=== PATIENT | male | born 1970 ===

== ENCOUNTER 2016-11-27 22:53 | Emergency (ER) | payer OTHER ==
[2016-11-28] MEDS ORDERED: PREDNISONE 20 MG TABLET ONE ×2 (01:27→01:30)
[2016-11-28] MEDS ORDERED: IBUPROFEN 800 MG TABLET ONE (01:27)
[2016-11-28 01:28] LABS: ABSOLUTE NEUTROPHIL COUNT 3.6 K/mm3 (1.8-7.7); BASO % 0.4 % (0.2-1.0); EOS # 0.3 (0.0-0.5); EOS % 3.5 % (0.9-2.9); HEMOGLOBIN 15.5 gm/l (14.0-18.0); IMM NEUT% 0.3 % (0-1); LYMPH # 2.7 (1.0-4.8); LYMPH % 37.7 % (15-45); MEAN CELL VOLUME 87.5 fl (80.0-94.0); MEAN CORPUSCULAR HEMOGLOBIN 29.5 pg (27.0-31.0); MEAN CORPUSCULAR HGB CONC 33.7 g/dl (33.0-37.0); MEAN PLATELET VOLUME 10.3 fl (7.4-10.4); MONO # 0.5 (0.0-0.8); MONO % 7.6 % (4-12); NEUT % 50.5 % (43-75); PLATELET COUNT 193 K/mm3 (130-400); RED CELL DISTRIBUTION WIDTH 12.4 % (11.5-14.5)
[2016-11-28 01:49] LABS: ALB/GLOB RATIO 1.5 (>1.0); ALBUMIN 4.4 gm/dL (3.5-5.7); CALCIUM 9.5 mg/dL (8.6-10.3)
[2016-11-28] MEDS ORDERED: HYDROCODONE/ACETAMINOPHEN 5/325MG TABLET ONE (03:48)
--- NOTE | 2016-11-28 07:48 | RAD ---
Name: JESSI SAINI Exam: Lumbar spine Comparison: None Clinical history: Chronic low back pain with recent worsening Findings: 3 radiographs of the lumbar spine are submitted. There are 5 nonrib-bearing lumbar type vertebral bodies. There is minimal broad levoscoliosis centered at L3-4 which may be positional and as a result, there is mild disc space narrowing to the right. Alignment on the laterals normal. There is no lytic or blastic lesion or evidence for fracture. Intervertebral disc spaces are maintained. Limited views the SI joints and hips are normal. Impression: Minimal broad levoscoliosis centered at L3-4 which may be positional.
== END 2016-11-28 03:59 | disposition home or self-care (01) ==
LOC: ED 22:53
DX: M54.5 Low back pain (principal)
CPT/HCPCS: 82150; 85025; 82550; 80053; 72100; 99283 ×2; A9270 ×2; J7512 ×2